=== PATIENT | male | born 1950 | race Hispanic/Latino ===

== ENCOUNTER 2017-08-13 05:31 | Observation (INO) | payer OTHER ==
[2017-08-11 12:21] VITALS: BP 126/78
[2017-08-11 12:31] LABS: BASOPHILS % (AUTO) 0.9 % (0.0-5.0); EOSINOPHILS % (AUTO) 21.6 % (0.0-8.0); HEMATOCRIT 49.8 % (42-54); LYMPHOCYTES % (AUTO) 27.6 % (21.0-51.0); MEAN CORPUSCULAR HEMOGLOBIN 30.8 pg (27.0-33.0); MEAN CORPUSCULAR HGB CONC 33.6 g/dL (32.0-36.0); MEAN CORPUSCULAR VOLUME 91.6 fL (79-99); MONOCYTES % (AUTO) 5.3 % (3.0-13.0); NEUTROPHILS % (AUTO) 44.6 % (40.0-77.0); PLATELET COUNT (AUTO) 232 K/uL (130-400); RED BLOOD CELL COUNT(AUTO) 5.43 MIL/uL (4.50-6.20); RED CELL DISTRIBUTION WIDTH 13.8 % (11.0-15.5); WHITE BLOOD COUNT (AUTO) 12.8 K/uL (4.8-10.8)
[2017-08-11 12:33] LABS: CREATININE 1.1 mg/dL (0.5-1.5); POTASSIUM 4.5 mmol/L (3.5-5.1)
[2017-08-11 12:37] LABS: INR 1.01 (0.85-1.15); PARTIAL THROMBOPLASTIN TIME 27.8 SEC (26.3-35.5); PROTHROMBIN TIME 10.6 SEC (9.6-11.6)
[2017-08-13] VITALS (15 sets, daily range): BP systolic 113–146; BP diastolic 78–103
[~2017-08-13] VITALS: Ht 170.2 cm; Wt 90.0 kg
[~2017-08-13 05:31] MED LIST: AMLO5TAB2 PO; ASPI-1197 PO; DORZ10DR10 OU; ESOM40CA54 PO; LOSA1TAB42 PO; METF500T6 PO; SIMV10TA6 PO; TRAV2.5D OU
[2017-08-13] MEDS ORDERED: SODIUM CHLORIDE 0.9% 1000ML 1,000 ML IV ONE (06:57)
[2017-08-13] MEDS ORDERED: CEFAZOLIN SODIUM 1 GM VIAL ONE (07:06)
[2017-08-13] MEDS ORDERED: BUPIVACAINE/PF 0.25% 30ML VIAL IJ ONE (07:06)
[2017-08-13] MEDS ORDERED: LIDOCAINE HCL 1% MDV 50ML VIAL ONE (07:07)
[2017-08-13] MEDS ORDERED: MIDAZOLAM HCL 1 MG/ML 2ML VIAL ONE ×2 (07:07→07:59)
[2017-08-13] MEDS ORDERED: ISOVUE-300 100 ML VIAL IV ONE (07:07)
[2017-08-13] MEDS ORDERED: MEPERIDINE-PF 25 MG/ML SYG ONE ×2 (07:07→07:59)
[2017-08-13] MEDS ORDERED: OCTYL 2-CYANOACRYLATE 1 EACH TP ONE (08:49)
[2017-08-13] MEDS: DORZOLAMIDE HCL/TIMOLOL MALEAT DROPS 10 ML BOTTLE OU SCH ×2 (09:00→20:27)
[2017-08-13] MEDS ORDERED: DEXTROSE 50%-WATER 50 ML DISP.SYRIN IV PRN (09:00)
[2017-08-13] MEDS: ASPIRIN 81MG TAB.CHEW PO SCH (09:00)
[2017-08-13] MEDS ORDERED: TEMAZEPAM 30 MG CAP PO PRN (09:00)
[2017-08-13] MEDS ORDERED: ACETAMINOPHEN 325 MG TAB PO PRN (09:00)
[2017-08-13] MEDS: METFORMIN HCL 500 MG TABLET PO SCH ×2 (09:00→20:27)
[2017-08-13] MEDS: PANTOPRAZOLE SODIUM 40 MG TABLET.DR PO SCH (09:00)
[2017-08-13] MEDS ORDERED: GLUCAGON 1MG KIT 1 MG ML IM PRN (09:00)
[2017-08-13] MEDS: AMLODIPINE BESYLATE 5 MG TAB PO SCH (09:00)
[2017-08-13] MEDS ORDERED: ONDANSETRON HCL 4 MG/2 ML VIAL IV PRN (09:00)
[2017-08-13] MEDS ORDERED: DOXY100C2 PO (09:04)
[2017-08-13] MEDS: HYDROCHLOROTHIAZIDE 25 MG TABLET PO SCH (09:40)
[2017-08-13] MEDS: LOSARTAN 100 MG TABLET PO SCH (09:40)
[2017-08-13] MEDS: INSULIN HUMULIN R 100 UNIT/ML 3ML SQ SCH ×3 (11:30→21:00)
[2017-08-13] MEDS: ACETAMINOPHEN-CODEINE 300/30MG TAB PO PRN ×2 (12:23→23:19)
[2017-08-13] MEDS ORDERED: KETOROLAC TROMETHAMINE 15MG/ML ONE (14:45)
[2017-08-13] MEDS ORDERED: KETOROLAC TROMETHAMINE 15MG/ML IV SCH (14:53)
[2017-08-13] MEDS ORDERED: CEFAZOLIN 1GM / D5W 50ML 50 ML IV SCH (15:45)
[2017-08-13] MEDS ORDERED: CEFAZOLIN SODIUM 1 GM VIAL IVP SCH (15:45)
[2017-08-13] MEDS: CEFAZOLIN SODIUM 1 GM VIAL IVP SCH (16:51)
[2017-08-13] MEDS ORDERED: ATORVASTATIN CALCIUM 10 MG TABLET PO SCH (21:00)
[2017-08-13] MEDS ORDERED: LATANOPROST 2.5 ML DROPS OU SCH (21:00)
[2017-08-14] MEDS: CEFAZOLIN SODIUM 1 GM VIAL IVP SCH (02:11)
[2017-08-14 03:31] VITALS: BP 130/95
[2017-08-14] MEDS: PANTOPRAZOLE SODIUM 40 MG TABLET.DR PO SCH (06:07)
[2017-08-14] MEDS: INSULIN HUMULIN R 100 UNIT/ML 3ML SQ SCH ×2 (06:08→11:53)
[2017-08-14 07:28] VITALS: BP 153/95
[2017-08-14] MEDS ORDERED: DORZOLAMIDE HCL/TIMOLOL MALEAT DROPS 10 ML BOTTLE OU SCH (08:13)
[2017-08-14] MEDS: METFORMIN HCL 500 MG TABLET PO SCH (08:35)
[2017-08-14] MEDS: LOSARTAN 100 MG TABLET PO SCH (08:36)
[2017-08-14] MEDS: AMLODIPINE BESYLATE 5 MG TAB PO SCH (08:37)
[2017-08-14] MEDS: ASPIRIN 81MG TAB.CHEW PO SCH (08:37)
[2017-08-14] MEDS: HYDROCHLOROTHIAZIDE 25 MG TABLET PO SCH (08:37)
[2017-08-14] MEDS: ACETAMINOPHEN-CODEINE 300/30MG TAB PO PRN (08:38)
[2017-08-14] MEDS ORDERED: ACET1TAB12 PO (09:09)
[2017-08-14 11:08] VITALS: BP 134/81
== END 2017-08-14 14:38 | disposition home or self-care (01) ==
LOC: DAH 05:31 → DAHIP 05:32 → 2AH 12:45
PROVIDERS: ADMIT Internal Medicine Cardiovascular Disease; ATTEND Internal Medicine Cardiovascular Disease
DX: I44.1 Atrioventricular block, second degree (principal); E11.9 Type 2 diabetes mellitus without complications; I10 Essential (primary) hypertension; E78.5 Hyperlipidemia, unspecified; Z86.73 Personal history of transient ischemic attack (TIA), and cerebral infarction without residual deficits; Z98.42 Cataract extraction status, left eye; Z82.49 Family history of ischemic heart disease and other diseases of the circulatory system
CPT/HCPCS: 33208; 36415; 71046; 80048; 82948 ×6; 85025; 85610; 85730; 93005; 96372; 96374; 96375; 96376; A4218 ×2; A4606; C1785; C1894; C1898 ×2; G0378 ×33; J0690 ×3; J1815; J1885; J2175 ×2; J2250 ×2; J3490 ×2; J7030; 99152; 99153; Q9967

== ENCOUNTER → 2017-09-02 | Outpatient (CLI) | payer OTHER ==
[~2017-09-02] MED LIST changes: +ACET1TAB12 PO; +DOXY100C2 PO
== END | disposition home or self-care (01) ==
LOC: OIH 14:52
PROVIDERS: ATTEND Internal Medicine Cardiovascular Disease
DX: Z13.6 Encounter for screening for cardiovascular disorders (principal)
CPT/HCPCS: 75571

== ENCOUNTER → 2019-05-19 | Outpatient (CLI) | payer OTHER ==
[~2019-05-19] MED LIST changes: -AMLO5TAB2 PO; +AMLO5TAB9 PO; +METF-444 PO; -METF500T6 PO; -SIMV10TA6 PO; +SIMV10TA97 PO
== END | disposition home or self-care (01) ==
LOC: SHCH 08:07
PROVIDERS: ATTEND Internal Medicine Cardiovascular Disease
DX: I35.8 Other nonrheumatic aortic valve disorders (principal); I49.5 Sick sinus syndrome
CPT/HCPCS: 93306; 93356

== ENCOUNTER → 2020-07-07 | Outpatient (CLI) | payer OTHER ==
[~2020-07-07] MED LIST changes: +AMLO-257 PO; -AMLO5TAB9 PO
== END | disposition home or self-care (01) ==
LOC: SHCH 08:41
PROVIDERS: ATTEND Internal Medicine Cardiovascular Disease
DX: I10 Essential (primary) hypertension (principal)
CPT/HCPCS: 93306; 93356

== ENCOUNTER → 2022-06-11 | Outpatient (CLI) | payer OTHER ==
[~2022-06-11] MED LIST changes: -DOXY100C2 PO; +DOXY100C5 PO
== END | disposition home or self-care (01) ==
LOC: RAH 13:16
PROVIDERS: ATTEND Internal Medicine Cardiovascular Disease
DX: Z13.6 Encounter for screening for cardiovascular disorders (principal); R93.1 Abnormal findings on diagnostic imaging of heart and coronary circulation
CPT/HCPCS: 75571